=== PATIENT | female | born 1995 | race Caucasian/White ===

== ENCOUNTER 2018-07-29 21:26 | Emergency (ER) | payer MEDICAID ==
[2018-07-29 21:32] VITALS: BP 114/80
--- NOTE | 2018-07-29 21:37 | EDPHY ---
H & P Time Seen by Provider: 07/29/18 21:37 HPI/ROS: CHIEF COMPLAINT: Sore throat HISTORY OF PRESENT ILLNESS: 23-year-old female here with sore throat since this morning. She reports mild cough associated with the sore throat but no runny nose. She has had a fever. She reports pain with swallowing but no trouble breathing. She has a history of frequent strep infections. ROS As detailed in HPI Smoking Status: Never smoked Physical Exam: General: Alert and oriented. Nontoxic appearing. No acute distress HEENT: Pupils PERRLA. Cardiopulmonary: Regular rate and rhythm. No lower extremity edema Skin: [place] warm and dry. No lesions. Muscle skeletal: Moving all 4 extremities. Equal strength in upper extremities and lower extremities. Ambulatory. ENT: Bilateral tonsils 3+ with white exudate. Uvula midline. No stridor. No drooling. Neck: Bilateral posterior cervical lymphadenopathy. Constitutional: Initial Vital Signs Temperature (C) 37.4 C 07/29/18 21:30 Heart Rate 112 H 07/29/18 21:30 Respiratory Rate 20 07/29/18 21:30 Blood Pressure 114/80 07/29/18 21:30 O2 Sat (%) 94 07/29/18 21:30 O2 Delivery Mode Room Air Allergies/Adverse Reactions: No Known Allergies Allergy (Unverified 07/29/18 21:32) Home Medications: Medication Instructions Recorded Penicillin V Potassium [Pen Vk 500 mg PO TID 10 Days #30 tab 07/29/18 500mg (*)] Medical Decision Making ED Course/Re-evaluation: Patient here was sore throat and exam consistent with strep pharyngitis. She was started on penicillin and given 1 dose of Decadron here. No evidence of airway obstruction. She is not drooling. She feels improved after Decadron. Strep swab was sent and pending at time of discharge. Differential Diagnosis: Peritonsillar abscess, retropharyngeal abscess, Braydon's angina, mononucleosis - Data Points Laboratory Results: 07/29/18 07/29/18 21:40 21:40 Group A Strep Screen Pending Group A Strep DNA Pending Medications Given: Discontinued Medications Dexamethasone (Decadron) 10 mg PO EDNOW ONE Stop: 07/29/18 21:43 Last Admin: 07/29/18 21:46 Dose: 10 mg Penicillin V Potassium (Pen Vk) 500 mg PO EDNOW ONE PRN Reason: Protocol Stop: 07/29/18 23:17 Last Admin: 07/29/18 23:26 Dose: 500 mg Departure - Departure Disposition: Home, Routine, Self-Care Clinical Impression: Pharyngitis Condition: Good Instructions: Pharyngitis (ED) Referrals: NONE *PRIMARY CARE P,. [Primary Care Provider] - As per Instructions [facility],. [Clinic] - As per Instructions Prescriptions: Penicillin V Potassium [Pen Vk 500mg (*)] 500 mg PO TID 10 Days #30 tab
[2018-07-29] MEDS ORDERED: DEXAMETHASONE 4 MG TAB PO ONE (21:42)
[2018-07-29] MEDS ORDERED: PENICILLIN VK 500 MG TAB PO ONE (23:16)
== END 2018-07-29 23:29 | disposition home or self-care (01) ==
DX: J02.0 Streptococcal pharyngitis (principal)